=== PATIENT | male | born 1965 | race Caucasian/White ===

== ENCOUNTER → 2023-07-03 15:08 | Outpatient (REF) | payer OTHER, SELFPAY | LOC: PAVMRI 15:08 | PROVIDERS: ATTENDING PHYSICIAN Family Medicine | DX: R41.3 Other amnesia (principal) | CPT/HCPCS: 70551 ==

== ENCOUNTER → 2023-08-19 14:56 | Outpatient (REF) | payer OTHER, SELFPAY | LOC: DHCBS MAIN 14:56 | PROVIDERS: ATTENDING PHYSICIAN Internal Medicine Cardiovascular Disease; FAMILY PHYSICIAN Internal Medicine | DX: I48.0 Paroxysmal atrial fibrillation (principal) | CPT/HCPCS: 93306 ==

== ENCOUNTER → 2024-03-26 07:12 | Outpatient (REF) | payer OTHER, SELFPAY | LOC: DHCBC/DCA 07:12 | PROVIDERS: ATTENDING PHYSICIAN Internal Medicine Cardiovascular Disease; FAMILY PHYSICIAN Family Medicine | DX: I48.0 Paroxysmal atrial fibrillation (principal) | CPT/HCPCS: 78452; 93017; A9500; J2785 ==

== ENCOUNTER → 2024-04-08 06:29 | Day surgery (SDC) | payer OTHER, SELFPAY ==
[2024-04-08 08:40] LABS: Glucose - Point of Care 151 mg/dl (70-99)
== END ==
LOC: GI 06:29
PROVIDERS: ATTENDING PHYSICIAN Internal Medicine Gastroenterology
PROC: 0DBK8ZX Excision of Ascending Colon, Via Natural or Artificial Opening Endoscopic, Diagnostic (ICD-10-PCS; 2024-04-08)
DX: Z12.11 Encounter for screening for malignant neoplasm of colon (principal); Z86.0100 Personal history of colon polyps, unspecified; D12.2 Benign neoplasm of ascending colon; K57.30 Diverticulosis of large intestine without perforation or abscess without bleeding; K64.8 Other hemorrhoids
CPT/HCPCS: 45385; 88305; 82962

== ENCOUNTER 2024-04-27 08:54 | Outpatient (RCR) | payer OTHER, SELFPAY | END 2024-04-27 23:59 | disposition home or self-care (01) | LOC: RPT 08:54 | PROVIDERS: ATTENDING PHYSICIAN Physician Assistant Medical; FAMILY PHYSICIAN Family Medicine | DX: M54.51 Vertebrogenic low back pain (principal); R26.2 Difficulty in walking, not elsewhere classified; Z73.6 Limitation of activities due to disability; M25.551 Pain in right hip; M25.511 Pain in right shoulder; M48.061 Spinal stenosis, lumbar region without neurogenic claudication; Z87.820 Personal history of traumatic brain injury | CPT/HCPCS: 97010; 97110; 97112; 97162 ==

== ENCOUNTER → 2024-08-26 09:03 | Outpatient (REF) | payer BC, SELFPAY | LOC: RCS 09:03 | PROVIDERS: ATTENDING PHYSICIAN Internal Medicine Cardiovascular Disease; FAMILY PHYSICIAN Family Medicine | DX: I48.0 Paroxysmal atrial fibrillation (principal) | CPT/HCPCS: 93306 ==